=== PATIENT | female | born 2000 | race Hispanic/Latino ===

== ENCOUNTER 2018-08-24 22:16 | Emergency (ER) | payer BC ==
[2018-08-24 23:10] VITALS: BMI 16.7
[2018-08-24 23:20] VITALS: TEMP 98.7
[2018-08-24] MEDS ORDERED: Sodium Chloride 0.9% 1,000 ML IV STA (23:28)
--- NOTE | 2018-08-24 23:32 | ED PDOC ---
Arrival/HPI - General Historian: Patient - History of Present Illness Narrative History of Present Illness (Text): 08/24/18 23:30 18 y/o female, no significant pmh, nkda, c/o passing out at home about 6 hours ago. Pt. stated that she has been sick URI symptoms for the past 2 days, been feeling throat pain/fatigue and tired, woke up from sleeping 5pm this evening, got up quickly, went to the kitchen to get water and passed out on the ground, no tremoring, no urinary or bowel incontinence/retention, no neck/back/chest/abdomen/extremity pain, no numbness or tingling, no other medical or psychological complaints. <Jose Ayoub - Last Filed: 08/25/18 02:17> <Roby Ma - Last Filed: 08/25/18 04:28> - General Chief Complaint: Syncope Past Medical History - Provider Review Nursing Documentation Reviewed: Yes - Psychiatric Hx Substance Use: No - Anesthesia Hx Anesthesia: Yes <Jose Ayoub - Last Filed: 08/25/18 02:17> Family/Social History - Physician Review Nursing Documentation Reviewed: Yes Family/Social History: Unknown Family HX Smoking Status: Light Smoker < 10 Cigarettes Daily Hx Alcohol Use: No Hx Substance Use: No <Jose Ayoub - Last Filed: 08/25/18 02:17> Allergies/Home Meds <Jose Ayoub - Last Filed: 08/25/18 02:17> <Roby Ma - Last Filed: 08/25/18 04:28> Allergies/Adverse Reactions: Allergies No Known Allergies Allergy (Verified 08/24/18 23:10) Review of Systems - Review of Systems Constitutional: Fatigue. absent: Fevers Eyes: absent: Vision Changes ENT: Sore Throat. absent: Hearing Changes, Rhinorrhea Respiratory: Cough. absent: SOB, Sputum Cardiovascular: absent: Chest Pain Gastrointestinal: absent: Abdominal Pain, Diarrhea, Nausea, Vomiting Musculoskeletal: absent: Arthralgias, Back Pain Skin: absent: Rash, Pruritis Neurological: absent: Headache, Dizziness Hemo/Lymphatic: absent: Adenopathy Psychiatric: absent: Anxiety, Depression, Suicidal Ideation <Jose Ayoub - Last Filed: 08/25/18 02:17> Physical Exam Vital Signs Reviewed: Yes Vital Signs Temp Pulse Resp BP Pulse Ox 08/24/18 23:20 98.7 F 08/24/18 23:17 117 H 15 114/81 100 Temperature: Afebrile Blood Pressure: Normal Pulse: Tachycardic Respiratory Rate: Normal Appearance: Positive for: Well-Appearing, Non-Toxic, Comfortable Pain Distress: None Mental Status: Positive for: Alert and Oriented X 3 - Systems Exam Head: Present: Atraumatic, Normocephalic, Other (no facial tenderness). No: Tenderness, Contusion, Swelling, Ecchymosis, Abrasion, Laceration Pupils: Present: PERRL Extroacular Muscles: Present: EOMI Conjunctiva: Present: Normal Ears: Present: NORMAL TM, Normal Canal. No: Erythema Mouth: Present: Moist Mucous Membranes Pharnyx: No: ERYTHEMA, EXUDATE, TONSILS ENLARGED, Peritonsilar Swelling, Uvular Deviation Nose (External): Present: Atraumatic. No: Abrasion, Contusion, Laceration, Lesions Nose (Internal): Present: Normal Inspection, No Active Bleeding. No: Edematous, Rhinorrhea, Septal Deviation, Septal Hematoma, Epistaxis Neck: Present: Normal Range of Motion, Trachea Midline. No: Meningeal Signs, MIDLINE TENDERNESS, Paraspinal Tenderness, Lymphadenopathy Respiratory/Chest: Present: Clear to Auscultation, Good Air Exchange. No: Respiratory Distress, Accessory Muscle Use, Wheezes, Decreased Breath Sounds, Rales, Retracting, Rhonchi, Tachypneic, Tender to Palpation Cardiovascular: Present: Regular Rate and Rhythm, Normal S1, S2. No: Murmurs Abdomen: No: Tenderness, Distention, Peritoneal Signs, Rebound, Guarding Back: Present: Normal Inspection. No: CVA Tenderness, Midline Tenderness, Paraspinal Tenderness, Pain with Leg Raise, Decubitus Ulcer Upper Extremity: Present: Normal Inspection. No: Cyanosis, Edema Lower Extremity: Present: Normal Inspection, NORMAL PULSES, Normal ROM, Neurovascularly Intact, Capillary Refill < 2 s. No: Edema, Tenderness, Swelling, Deformity Neurological: Present: GCS=15, CN II-XII Intact, Speech Normal, Motor Func Grossly Intact, Normal Cerebellar Funct, Gait Normal, Memory Normal Skin: Present: Warm, Dry, Normal Color. No: Rashes Psychiatric: Present: Alert, Oriented x 3, Normal Insight, Normal Concentration <AyoubJose Q - Last Filed: 08/25/18 02:17> Vital Signs Temp Pulse Resp BP Pulse Ox 08/24/18 23:20 98.7 F 08/24/18 23:17 117 H 15 114/81 100 <Roby Ma - Last Filed: 08/25/18 04:28> Medical Decision Making ED Course and Treatment: 08/24/18 23:32 -Labs -EKG -Chest xray -IVF -Observe and reassess 08/25/18 02:17 -Urine hcg is negative -EKG -CXR ER wet read: no active disease -Labs are nonsignificant -Rapid strep is negative -Rapid flu is negative -Trop is negative -Dimer 260, mildly elevated -Mg within normal limit -UA -UDS is negative -Alcohol is negative -Case discussed and endorsed to Dr. Ma to follow up ekg/ua/CT scans - RAD Interpretation Radiology Orders: 08/24/18 23:28 CHEST PORTABLE [RAD] Stat CT head: CTA Chest: Chest xray: Filter Machine Operator: Radiologist <Jose Ayoub Q - Last Filed: 08/25/18 02:17> ED Course and Treatment: EKG shows NSR at [address]/t wave changes. Interpreted by me. CT SCAN OF THE BRAIN WITHOUT IV CONTRAST Electronically signed on Aug 25, 2018 3:07:52 AM EDT by: Emely Skelton M.D. IMPRESSION: Normal unenhanced CT scan of the brain. Chronic sinusitis. CTA OF THE CHEST WITH IV CONTRAST Electronically signed on Aug 25, 2018 3:34:12 AM EDT by: Emely Skelton M.D., IMPRESSION: Normal CTA chest examination, without a demonstrated pulmonary embolism or art erial dissection. 08/25/18 03:44 On re-evaluation, patient is in no acute distress. I have discussed the results and plan with the patient, who expresses understanding. Patient in agreement with plan to be discharged home. Patient is stable for discharge. Patient was instructed to follow up with physician or return if symptoms worsen or new concerning symptoms arise. 08/25/18 04:26 ct head/cta neg. pt i nnad. neuro intact. ekg no changes. suspect vasovagal/dehydration. empiric tamiflu given. pt asking for dc. return precautiosn advsied. - Lab Interpretations Lab Results: D-Dimer, Quantitative 260 ng/mlDDU (0-243) H 08/25/18 00:20 Troponin I < 0.01 ng/mL 08/25/18 00:20 Total Bilirubin 0.4 mg/dL (0.2-1.3) 08/25/18 00:20 AST 31 U/L (14-36) 08/25/18 00:20 ALT 16 U/L (7-56) 08/25/18 00:20 Alkaline Phosphatase 61 U/L (38-126) 08/25/18 00:20 Total Protein 7.5 g/dL (5.8-8.3) 08/25/18 00:20 Albumin 4.0 g/dL (3.0-4.8) 08/25/18 00:20 Globulin 3.4 gm/dL 08/25/18 00:20 Albumin/Globulin Ratio 1.2 (1.1-1.8) 08/25/18 00:20 Urine Color Yellow (YELLOW) 08/25/18 01:19 Urine Appearance Clear (CLEAR) 08/25/18 01:19 Urine pH 6.5 (4.7-8.0) 08/25/18 01:19 Ur Specific [place] 1.010 (1.005-1.035) 08/25/18 01:19 Urine Protein Trace mg/dL (<30 mg/dL) H 08/25/18 01:19 Urine Glucose (UA) Negative mg/dL (NEGATIVE) 08/25/18 01:19 Urine Ketones Trace mg/dL (NEGATIVE) H 08/25/18 01:19 Urine Blood Negative (NEGATIVE) 08/25/18 01: Urine Nitrate Negative (NEGATIVE) 08/25/18 01: Urine Bilirubin Negative (NEGATIVE) 08/25/18 01:19 Urine Urobilinogen 0.2 E.U./dL (<1 E.U./dL) 08/25/18 01:19 Ur Leukocyte Esterase Negative Amrit/uL (NEGATIVE) 08/25/18 01: Urine RBC 0 - 2 /hpf (0-2) 08/25/18 01:19 Urine WBC 0 - 2 /hpf (0-6) 08/25/18 01:19 Ur Epithelial Cells 1 - 3 /hpf (0-5) 08/25/18 01:19 Urine Bacteria Small /hpf (NONE) 08/25/18 01:19 Beta HCG, Quant < 2.39 mIU/mL (0-6.15) 08/25/18 00:20 - RAD Interpretation Radiology Orders: 08/24/18 23:28 CHEST ONE VIEW [RAD] Stat 08/25/18 00:57 ANGIO CHEST PE PROTOCOL [CT] Stat HEAD W/O CONTRAST [CT] Stat - Medication Orders Current Medication Orders: Discontinued Medications Acetaminophen (Tylenol 325mg Tab) 650 mg PO STAT STA Stop: 08/24/18 23:29 Last Admin: 08/25/18 00:11 Dose: 650 mg MAR Pain/Vitals Document 08/25/18 00:11 OCS (Rec: 08/25/18 00:11 OCS [facility] [place]-ER-20) Pain Reassessment Is This A Pain ReAssessment? No Sleep Is patient sleeping during reassessment? No Presence of Pain Presence of Pain Yes Pain Scale Used Protocol: PSCALES Pain Scale Used Numeric Location Pain Location Body Site Generalized Description Constant Intensity 7 Scale Used Numeric Aggravating Factors ADL's Sodium Chloride (Sodium Chloride 0.9%) 1,000 mls @ 999 mls/hr IV .Q1H1M STA Stop: 08/25/18 00:28 Last Admin: 08/25/18 00:13 Dose: 999 mls/hr eMAR Start Stop Document 08/25/18 00:13 OCS (Rec: 08/25/18 00:13 OCS [facility] [place]-ER-20) Intravenous Solution Start Date 08/25/18 Start Time 00:13 End Date 08/25/18 End time 01:14 Total Infusion Time 61 <Roby Ma - Last Filed: 08/25/18 04:28> - PA / SENIOR STATISTICIAN / Resident Statement / has reviewed & agrees with the documentation as recorded. <Jose Ayoub - Last Filed: 08/25/18 02:17> Disposition/Present on Arrival - Present on Arrival Any Indicators Present on Arrival: No History of DVT/PE: No History of Uncontrolled Diabetes: No Urinary Catheter: No History of Decub. Ulcer: No History Surgical Site Infection Following: None - Disposition Have Diagnosis and Disposition been Completed?: Yes Disposition Time: 02:18 <Jose Ayoub - Last Filed: 08/25/18 02:17> <Roby Ma - Last Filed: 08/25/18 04:28> - Disposition Diagnosis: Syncope, Viral syndrome Disposition: HOME/ ROUTINE Condition: GOOD Discharge Instructions (ExitCare): Viral Pharyngitis, Sore Throat, Adult (DC), Vasovagal Response, Syncope (ED) Additional Instructions: follow up with your doctor/clinic. return to er with worsening. Prescriptions: Oseltamivir Phosphate [Tamiflu] 75 mg PO BID #10 capsule Referrals: [facility] [employer] [facility] [Outside] - Follow up with primary [facility] at [facility] [place] [Outside] - Follow up with primary Forms: [employer] (Macedonian)
[2018-08-25 00:27] LABS: INFLUENZA A B NEGATIVE FOR FLU A/B (NEGATIVE)
[2018-08-25 00:34] LABS: BASO # 0.01 K/mm3 (0.0-2.0); BASO % 0.1 % (0.0-3.0); HEMOGLOBIN 12.7 g/dL (12.0-16.0); LYMPH # 1.1 (1.2-3.4); LYMPH % 11.1 % (22.0-35.0); MEAN CORPUSCULAR HEMOGLOBIN 26.7 pg (25.0-35.0); MEAN CORPUSCULAR HGB CONC 31.8 g/dl (31.0-37.0); MEAN PLATELET VOLUME 12.3 fl (7.0-11.0); MONO # 0.6 (0.1-0.6); MONO % 6.1 % (1.0-6.0); RBC 4.76 10^6/uL (3.5-6.1); RED CELL DISTRIBUTION WIDTH 15.3 % (11.5-14.5); WHITE BLOOD COUNT 10.2 10^3/uL (4.5-11.0)
[2018-08-25 00:44] LABS: ALB/GLOB RATIO 1.2 (1.1-1.8); ALT/SGPT 16 U/L (7-56); AST/SGOT 31 U/L (14-36); BLOOD UREA NITROGEN 13 mg/dL (7-21); CALCIUM 8.7 mg/dL (8.4-10.5); GFR NON-AFRICAN AMERICAN > 60
[2018-08-25 00:54] LABS: TROPONIN I < 0.01 ng/mL
[2018-08-25] MEDS ORDERED: Iodixanol 320 MG/ML 100 ML BOTTLE IV ONE (01:47)
[2018-08-25 02:13] LABS: BARBITURATES, UR NEGATIVE (NEGATIVE); BENZODIAZEPINES, UR NEGATIVE (NEGATIVE); OPIATES, UR NEGATIVE (NEGATIVE); PHENCYCLIDINE, UR NEGATIVE (NEGATIVE)
[2018-08-25 02:33] LABS: PH,URINE 6.5 (4.7-8.0); URINE BILIRUBIN NEGATIVE (NEGATIVE); URINE BLOOD NEGATIVE (NEGATIVE); URINE GLUCOSE (UA) NEGATIVE (NEGATIVE); URINE LEUKOCYTE ESTERASE NEGATIVE Leu/uL (NEGATIVE); URINE PROTEIN TRACE mg/dL (<30 mg/dL); URINE UROBILINOGEN 0.2 E.U./dL (<1 E.U./dL)
[2018-08-25 02:34] LABS: URINE APPEARANCE CLEAR (CLEAR); URINE COLOR YELLOW (YELLOW)
[2018-08-25 02:59] LABS: URINE BACTERIA SMALL /hpf; URINE RBC 0 - 2 /hpf (0-2); URINE WBC 0 - 2 /hpf (0-6)
[2018-08-25 03:41] VITALS: BP 103/57; PULSE 92; RESP 16; O2SAT 97
--- NOTE | 2018-08-25 08:44 | CT ---
Date of service: 08/25/2018 PROCEDURE: CT HEAD WITHOUT CONTRAST. HISTORY: syncope/dizzy COMPARISON: None available. TECHNIQUE: Axial computed tomography images were obtained through the head/brain without intravenous contrast. Radiation dose: Total exam DLP = 817.99 mGy-cm. This CT exam was performed using one or more of the following dose reduction techniques: Automated exposure control, adjustment of the mA and/or kV according to patient size, and/or use of iterative reconstruction technique. FINDINGS: HEMORRHAGE: No intracranial hemorrhage. BRAIN: No mass effect or edema. No atrophy or chronic microvascular ischemic changes. VENTRICLES: Unremarkable. No hydrocephalus. CALVARIUM: Unremarkable. PARANASAL SINUSES: Partial opacification of the left maxillary and bilateral ethmoid sinuses MASTOID AIR CELLS: Unremarkable as visualized. No inflammatory changes. OTHER FINDINGS: The report concurs with the preliminary [facility] report IMPRESSION: No acute intracranial findings
--- NOTE | 2018-08-25 09:06 | CT ---
Date of service: 08/25/2018 PROCEDURE: CT Chest with contrast (Pulmonary Angiogram) HISTORY: r/o pe COMPARISON: None available. TECHNIQUE: Axial computed tomography images were obtained of the chest in the pulmonary arterial phase of enhancement. Coronal and sagittal reformatted images were created and reviewed. Intravenous contrast dose: Radiation dose: Total exam DLP = 234.89 mGy-cm. This CT exam was performed using one or more of the following dose reduction techniques: Automated exposure control, adjustment of the mA and/or kV according to patient size, and/or use of iterative reconstruction technique. FINDINGS: PULMONARY ARTERIES: Unremarkable. No pulmonary embolism. AORTA: No acute findings. No thoracic aortic aneurysm. No aortic atherosclerotic calcification or mural plaque present. LUNGS: Unremarkable. No nodule, mass or pulmonary consolidation. PLEURAL SPACES: Unremarkable. No effusion or pneumothorax. HEART: Unremarkable. No cardiomegaly. No significant pericardial effusion. LYMPH NODES: No lymphadenopathy. BONES, CHEST WALL: Unremarkable. No fracture or destructive lesion OTHER FINDINGS: The report concurs with the preliminary [facility] report IMPRESSION: Unremarkable CT pulmonary angiogram. No pulmonary embolus.
--- NOTE | 2018-08-25 09:29 | CARD ---
APPROVED REPORT Date of service: 08/25/2018 EKG Measurement Heart [id number] <Conclusion> Normal sinus rhythm Normal ECG
--- NOTE | 2018-08-25 12:31 | RAD ---
Date of service: 08/25/2018 PROCEDURE: CHEST RADIOGRAPH, 1 VIEW HISTORY: syncope? COMPARISON: None available. FINDINGS: LUNGS: Clear. PLEURA: No pneumothorax or pleural fluid seen. CARDIOVASCULAR: No aortic atherosclerotic calcification present. Normal. OSSEOUS STRUCTURES: No significant abnormalities. VISUALIZED UPPER ABDOMEN: Normal. OTHER FINDINGS: None. IMPRESSION: No active disease.
== END 2018-08-25 03:54 | disposition home or self-care (01) ==
LOC: ED 22:16
DX: R55 Syncope and collapse (principal); B34.9 Viral infection, unspecified
CPT/HCPCS: 70450; 71045; 71275; 80053; 81001; 81025; 83735; 84484; 84702; 85025; 85378; 87070; 87430; 87804; 93005; 96360; 99285; G0480; J7030; Q9967